=== PATIENT | female | born 1960 ===

== ENCOUNTER → 2019-03-07 21:14 | Outpatient (CLI) | payer SELFPAY ==
[2019-03-08 00:05] LABS: BASOPHILS 0.2 % (0-2); EOSINOPHILS 2.4 % (0-7); HEMOGLOBIN 13.9 g/dL (12-16); IMMATURE GRANULOCYTES 0.1 % (0-5); LYMPHOCYTES 24.4 % (15-50); MCH 29.8 pg (26.0-34.0); MCHC 33.1 g/dL (31.0-37.0); MCV 89.9 fL (80.0-100.0); MEAN PLATELET VOLUME 9.9 fL (7.4-10.4); MONOCYTES 13.5 % (2-11); NEUTROPHILS 59.4 % (40-80); PLATELET COUNT 264 10x3/uL (130-400); RBC 4.67 10x6/uL (4.00-5.40); RDW 13.4 % (11.5-14.5); WBC 8.6 10x3/uL (4.8-10.8)
[2019-03-09 08:10] LABS: IMMUNOGLOBULIN A 196 mg/dL (87-352); IMMUNOGLOBULIN G 807 mg/dL (700-1600); IMMUNOGLOBULIN M 143 mg/dL (26-217)
== END | disposition home or self-care (01) ==
LOC: D.LABREF 21:14
PROVIDERS: ATTEND Internal Medicine Pulmonary Disease
DX: J44.9 Chronic obstructive pulmonary disease, unspecified (principal)

== ENCOUNTER → 2019-04-29 10:50 | Outpatient (CLI) | payer BC | END | disposition home or self-care (01) | LOC: D.RAD 10:50 | PROVIDERS: ATTEND Internal Medicine Pulmonary Disease | DX: J45.909 Unspecified asthma, uncomplicated (principal) ==